=== PATIENT | female | born 1955 | race Caucasian/White ===

== ENCOUNTER 2022-07-23 19:31 | Inpatient (IN) | payer OTHER, MEDICAID ==
[~2022-07-23] VITALS: Ht 157.5 cm; Wt 52.6 kg
[2022-07-23 20:14] VITALS: BP 116/63
[2022-07-23 22:12] LABS: BASOPHILS # (AUTO) 0.1 K/uL (0.00-0.22); BASOPHILS % (AUTO) 0.7 % (0.0-2.0); EOSINOPHILS # (AUTO) 0.7 K/uL (0-0.4); EOSINOPHILS % (AUTO) 6.8 % (0.0-4.0); HEMATOCRIT 22.7 % (36-48); LYMPHOCYTES # (AUTO) 3.1 K/uL (2.5-16.5); LYMPHOCYTES % (AUTO) 30.4 % (20.5-51.1); MEAN CORPUSCULAR HEMOGLOBIN 21 pg (27-31); MEAN CORPUSCULAR HGB CONC 31 g/dL (33-37); MEAN CORPUSCULAR VOLUME 69.7 fL (80-94); MONOCYTES # (AUTO) 0.9 K/uL (0.8-1.0); MONOCYTES % (AUTO) 8.9 % (1.7-9.3); NEUTROPHILS # (AUTO) 5.4 K/uL (1.8-7.7); NEUTROPHILS % (AUTO) 53.2 % (42.2-75.2); PLATELET COUNT (AUTO) 521 K/uL (140-450); RED BLOOD CELL COUNT(AUTO) 3.26 MIL/uL (4.20-5.40); RED CELL DISTRIBUTION WIDTH 18.4 % (11.6-13.7); WHITE BLOOD COUNT (AUTO) 10.1 K/uL (4.8-10.8)
[2022-07-23 22:15] LABS: APPEARANCE,URINE CLEAR (CLEAR); BILIRUBIN,URINE NEGATIVE (NEGATIVE); BLOOD, URINE NEGATIVE (NEGATIVE); COLOR,URINE YELLOW (YELLOW); LEUKOCYTE ESTERASE ,URINE NEGATIVE (NEGATIVE); NITRITE, URINE NEGATIVE (NEGATIVE); UGLUCOSE 3+ (NEGATIVE)
[2022-07-23 22:42] LABS: ALBUMIN 2.9 g/dL (3.4-5.0); ANION GAP 11.7 (8-16); POTASSIUM 4.7 mmol/L (3.5-5.1); TOTAL BILIRUBIN 0.2 mg/dL (0.0-1.0)
[2022-07-23 22:46] LABS: HEMOGLOBIN 6.9 g/dL (12.0-16.0)
[2022-07-24] MEDS ORDERED: HYDR10SY PO (01:13)
[2022-07-24] MEDS ORDERED: IBUP-2213 PO (01:13)
[2022-07-24] MEDS ORDERED: VALS320T17 PO (01:13)
[2022-07-24] MEDS ORDERED: METF-350 PO (01:13)
[2022-07-24] MEDS ORDERED: OMEP20EC11 PO (01:13)
[2022-07-24] MEDS ORDERED: SIMV-372 PO (01:16)
[2022-07-24] MEDS ORDERED: EMPA25TA PO (01:16)
[2022-07-24] MEDS ORDERED: OMEG1CAP4 PO (01:16)
[2022-07-24] MEDS ORDERED: MELO-176 PO (01:16)
[2022-07-24] MEDS ORDERED: MORPHINE SULFATE 4 MG/ML SYR IVP ONE (01:45)
[2022-07-24] MEDS ORDERED: ONDANSETRON 4 MG/2 ML VIAL IVP ONE (01:55)
[2022-07-24] MEDS ORDERED: ACETAMINOPHEN 325 MG TAB PO PRN (02:10)
[2022-07-24] MEDS ORDERED: DEXTROSE 50% 50 ML SYR IVP PRN (02:10)
[2022-07-24] MEDS ORDERED: ALBUTEROL 0.083% 2.5 MG/3 ML NEBU INH PRN (02:10)
[2022-07-24] MEDS ORDERED: ONDANSETRON 4 MG/2 ML VIAL IVP PRN (02:10)
[2022-07-24] MEDS ORDERED: HYDROcodone/APAP 5/325 MG 1 TAB TAB PO PRN (02:10)
[2022-07-24 04:34] VITALS: BP 137/62
[2022-07-24] MEDS: BLOOD GLUCOSE MONITORING 1 DEV DEV FS SCH ×4 (06:41→20:25)
[2022-07-24] MEDS: INSULIN LISPRO SLIDING SCALE 100 UNITS/ML VIAL SUBQ PRN ×2 (06:44→20:26)
[2022-07-24] MEDS: ATORVASTATIN 20 MG TAB PO SCH (09:38)
[2022-07-24] MEDS: ENOXAPARIN 40 MG/0.4 ML SYR SUBQ SCH (09:50)
[2022-07-24] MEDS: MORPHINE SULFATE 2 MG/ML SYR IVP PRN (18:51)
[2022-07-24 20:00] VITALS: BP 137/62
[2022-07-24 23:37] LABS: BASOPHILS # (AUTO) 0.1 K/uL (0.00-0.22); BASOPHILS % (AUTO) 0.7 % (0.0-2.0); EOSINOPHILS # (AUTO) 0.7 K/uL (0-0.4); EOSINOPHILS % (AUTO) 8.5 % (0.0-4.0); HEMATOCRIT 25.1 % (36-48); LYMPHOCYTES # (AUTO) 2.5 K/uL (2.5-16.5); MEAN CORPUSCULAR HEMOGLOBIN 23 pg (27-31); MEAN CORPUSCULAR HGB CONC 32 g/dL (33-37); MONOCYTES # (AUTO) 0.8 K/uL (0.8-1.0); MONOCYTES % (AUTO) 10.5 % (1.7-9.3); NEUTROPHILS # (AUTO) 3.9 K/uL (1.8-7.7); NEUTROPHILS % (AUTO) 49.3 % (42.2-75.2); PLATELET COUNT (AUTO) 479 K/uL (140-450); RED BLOOD CELL COUNT(AUTO) 3.48 MIL/uL (4.20-5.40); RED CELL DISTRIBUTION WIDTH 20.1 % (11.6-13.7)
[2022-07-25] MEDS: MORPHINE SULFATE 2 MG/ML SYR IVP PRN ×3 (01:25→14:04)
[2022-07-25 04:00] VITALS: BP 117/53
[2022-07-25] MEDS: BLOOD GLUCOSE MONITORING 1 DEV DEV FS SCH ×2 (06:30→11:30)
[2022-07-25] MEDS: INSULIN LISPRO SLIDING SCALE 100 UNITS/ML VIAL SUBQ PRN ×2 (06:30→14:02)
[2022-07-25 07:06] LABS: ALBUMIN 2.6 g/dL (3.4-5.0); ANION GAP 10.2 (8-16); BASOPHILS # (AUTO) 0.1 K/uL (0.00-0.22); BASOPHILS % (AUTO) 0.7 % (0.0-2.0); CARBON DIOXIDE 26.8 mmol/L (21-32); CREATININE 0.7 mg/dL (0.6-1.3); EOSINOPHILS # (AUTO) 0.6 K/uL (0-0.4); EOSINOPHILS % (AUTO) 8.1 % (0.0-4.0); HEMATOCRIT 25.3 % (36-48); HEMOGLOBIN 7.9 g/dL (12.0-16.0); LYMPHOCYTES # (AUTO) 2.2 K/uL (2.5-16.5); LYMPHOCYTES % (AUTO) 29.6 % (20.5-51.1); MAGNESIUM 1.8 mg/dL (1.8-2.4); MEAN CORPUSCULAR HEMOGLOBIN 23 pg (27-31); MEAN CORPUSCULAR HGB CONC 31 g/dL (33-37); MEAN CORPUSCULAR VOLUME 72.3 fL (80-94); MONOCYTES # (AUTO) 0.6 K/uL (0.8-1.0); MONOCYTES % (AUTO) 8.8 % (1.7-9.3); NEUTROPHILS # (AUTO) 3.9 K/uL (1.8-7.7); NEUTROPHILS % (AUTO) 52.8 % (42.2-75.2); PHOSPHORUS 3.3 mg/dL (2.5-4.9); PLATELET COUNT (AUTO) 435 K/uL (140-450); RED CELL DISTRIBUTION WIDTH 20.1 % (11.6-13.7); TOTAL BILIRUBIN 0.3 mg/dL (0.0-1.0); WHITE BLOOD COUNT (AUTO) 7.4 K/uL (4.8-10.8)
[2022-07-25 08:00] VITALS: BP 108/47
[2022-07-25] MEDS ORDERED: TAMSULOSIN 0.4 MG CAP PO SCH (08:30)
[2022-07-25] MEDS ORDERED: TAMS0.4C96 PO (08:53)
[2022-07-25] MEDS ORDERED: FERR-20 PO (08:54)
[2022-07-25] MEDS: ENOXAPARIN 40 MG/0.4 ML SYR SUBQ SCH (09:00)
[2022-07-25] MEDS: ATORVASTATIN 20 MG TAB PO SCH (09:20)
[2022-07-25] MEDS ORDERED: HYDR-5080 PO (13:54)
== END 2022-07-25 14:10 | disposition home or self-care (01) | DRG 812 ==
LOC: MED 19:32 → MMU 07-24 03:15 → MTU 07-24 04:48 → OBSVTOIN 07-24 15:20
PROVIDERS: ADMIT Internal Medicine; ATTEND Internal Medicine
PROC: 30233N1 Transfusion of Nonautologous Red Blood Cells into Peripheral Vein, Percutaneous Approach (ICD-10-PCS; principal; 2022-07-24)
DX: D50.9 Iron deficiency anemia, unspecified (principal); E44.0 Moderate protein-calorie malnutrition; N20.0 Calculus of kidney; Z20.822 Contact with and (suspected) exposure to COVID-19; E11.9 Type 2 diabetes mellitus without complications; E78.5 Hyperlipidemia, unspecified; I10 Essential (primary) hypertension; Z68.21 Body mass index [BMI] 21.0-21.9, adult
CPT/HCPCS: 36415; 36430; 80053; 81003; 82728; 82948; 83540; 83735; 84100; 85025; 86886; 86900; 86901; 86920; 87040; 87081; 96374; 96375; 99285; J1650; J1815; J2270; J2405; P9016